=== PATIENT | male | born 1990 | race Caucasian/White ===

== ENCOUNTER 2016-09-23 06:30 | Emergency (ER) | payer SELFPAY ==
[2016-09-23 07:06] LABS: #Basophils 0.1 thou/uL (0.0-0.2); #Eosinphils 0.1 thou/uL (0.0-0.7); #Lymphocytes 2.7 thou/uL (1.20-3.40); #Monocytes 0.6 thou/uL (0.11-0.59); %Eosinophils 1.3 % (0.0-10.0); %Lymphocytes 28.3 % (21.0-51.0); %Monocytes 6.4 % (0.0-10.0); %Neutrophils 62.9 % (42.0-75.0); Hemoglobin 16.7 g/dL (14.0-18.0); Mean Corpuscular HGB CONC 33.6 g/dL (32.0-36.0); Mean Corpuscular Hemoglobin 29.6 pg (27.0-31.0); Mean Corpuscular Volume 88.1 fl (80.0-94.0); Mean Platelet Volume 9.3 fL (7.4-10.4); Platelet Count 171 thou/uL (130-400); Red Blood Cell (RBC) Count 5.65 mill/uL (4.70-6.10); White Blood Cell (WBC) Count 9.5 thou/uL (4.8-10.8)
[2016-09-23 07:20] LABS: ALT (SGPT) 7 U/L (8-55); AST (SGOT) 13 U/L (5-34); Albumin 4.6 g/dL (3.5-5.0); Alkaline Phosphatase 74 U/L (40-150); Anion Gap 16 mmol/L (10-20); BUN (Urea Nitrogen) 19 mg/dL (8.9-20.6); Bilirubin, Total 0.5 mg/dL (0.2-1.2); Calc. Creatinine Clearance 0 mL/min (70-130); Calcium 9.5 mg/dL (7.8-10.44); Carbon Dioxide 22 mmol/L (22-29); Chloride 106 mmol/L (98-107); Estimated GFR-MDRD 89; Globulin 2.7 g/dL (2.4-3.5); Glucose 106 mg/dL (70-105); Potassium 4.2 mmol/L (3.5-5.1); Protein, Total 7.3 g/dL (6.0-8.3); Sodium 140 mmol/L (136-145)
[2016-09-23] MEDS ORDERED: Acetaminophen 325 MG TAB ONE (07:35)
[2016-09-23] MEDS ORDERED: Azithromycin 250 MG TAB ONE (07:35)
--- NOTE | 2016-09-23 08:14 | RAD ---
FRONTAL VIEW CHEST CLINICAL HISTORY: Pneumonia. COMPARISON: No prior comparison. FINDINGS: The lungs are clear. No effusion or pneumothorax. The cardiac silhouette is normal in size. The o sseous structures are intact. IMPRESSION: No focal consolidation. POS: [facility]
== END 2016-09-23 07:40 | disposition home or self-care (01) ==
LOC: NAV ERS 06:30
DX: J20.9 Acute bronchitis, unspecified (principal); F31.9 Bipolar disorder, unspecified; F17.210 Nicotine dependence, cigarettes, uncomplicated
CPT/HCPCS: 71010; 80053; 85025

== ENCOUNTER 2021-08-09 13:13 | Emergency (ER) | payer SELFPAY ==
[2021-08-09] MEDS ORDERED: Fluorescein Opthalmic Strip ONE (14:39)
[2021-08-09] MEDS ORDERED: Tetracaine 0.5% PF 4 ML BOT ONE (14:39)
[2021-08-09] MEDS ORDERED: Erythromycin Base 0.5% Oint 1 GM TUBE ONE (14:47)
[2021-08-09] MEDS ORDERED: Boostrix 0.5 ML (Tdap) VIAL ONE (14:54)
== END 2021-08-09 15:04 | disposition home or self-care (01) ==
LOC: NAV ERS 13:13
DX: B00.52 Herpesviral keratitis (principal); Z23 Encounter for immunization; F17.210 Nicotine dependence, cigarettes, uncomplicated
CPT/HCPCS: 90471; 90715

== ENCOUNTER 2025-02-04 23:23 | Emergency (ER) | payer SELFPAY ==
[2025-02-04] MEDS ORDERED: HYDROcodone/Acetaminophen 5/325 mg Tablet ONE (23:56)
== END 2025-02-05 | disposition home or self-care (01) ==
LOC: NAV ERS 23:23
DX: K04.4 Acute apical periodontitis of pulpal origin (principal); F17.210 Nicotine dependence, cigarettes, uncomplicated
CPT/HCPCS: 99282